=== PATIENT | female | born 1955 | race Hispanic/Latino ===

== ENCOUNTER 2018-04-15 23:06 | Emergency (ER) | payer OTHER ==
[2018-04-15] MEDS ORDERED: HYDROCODONE/ACETAMINOPHEN 10/325 MG TAB ONE (23:25)
[2018-04-15] MEDS ORDERED: LIDOCAINE HCL-MPF 1% 2ML VIAL ONE (23:26)
== END 2018-04-16 00:33 | disposition home or self-care (01) ==
LOC: EDH 23:06
DX: S52.591A Other fractures of lower end of right radius, initial encounter for closed fracture (principal); S01.81XA Laceration without foreign body of other part of head, initial encounter; Z90.49 Acquired absence of other specified parts of digestive tract; W18.39XA Other fall on same level, initial encounter; Y93.89 Activity, other specified; Y92.89 Other specified places as the place of occurrence of the external cause; Y99.8 Other external cause status
CPT/HCPCS: 12051; 73110; 99284; J3490

== ENCOUNTER → 2020-01-17 | Outpatient (CLI) | payer OTHER | END | disposition home or self-care (01) | LOC: OIH 08:32 | PROVIDERS: ATTEND Internal Medicine | DX: M17.11 Unilateral primary osteoarthritis, right knee (principal); M23.91 Unspecified internal derangement of right knee | CPT/HCPCS: 73560 ==

== ENCOUNTER → 2024-05-08 | Outpatient (CLI) | payer OTHER | END | disposition home or self-care (01) | LOC: RAH 08:49 | PROVIDERS: ATTEND Internal Medicine | DX: M17.12 Unilateral primary osteoarthritis, left knee (principal); M23.92 Unspecified internal derangement of left knee; M25.562 Pain in left knee | CPT/HCPCS: 73560 ==